=== PATIENT | female | born 1970 | race Caucasian/White ===

== ENCOUNTER 2017-09-24 08:16 | Emergency (ER) | payer OTHER ==
[~2017-09-24] VITALS: Ht 170.2 cm; Wt 108.9 kg
[~2017-09-24 08:16] MED LIST: CARAFATE 1 GM TA1 GM PO; HYDROCHLOROTHIA25 M2 PO; PEPCID20 MG PO
[2017-09-24 08:21] VITALS: BP 179/73
== END 2017-09-24 08:42 | disposition home or self-care (01) ==
LOC: M.ERS 08:16
DX: I10 Essential (primary) hypertension (principal); Z90.49 Acquired absence of other specified parts of digestive tract